=== PATIENT | male | born 1945 | race Caucasian/White ===

== ENCOUNTER 2016-08-25 17:32 | Emergency (ER) | payer MEDICARE, OTHER ==
[2016-08-25 18:40] LABS: HEMOGLOBIN 14.2 gm/dl (14.0-17.5); RED BLOOD COUNT 4.67 M/UL (4.20-5.50); WHITE BLOOD COUNT 9.6 K/UL (4.5-11.0)
== END 2016-08-26 00:45 | disposition left against medical advice (07) ==
LOC: ER1 17:32
PROVIDERS: Emergency Medicine
DX: R07.9 Chest pain, unspecified (principal); E11.65 Type 2 diabetes mellitus with hyperglycemia; F17.200 Nicotine dependence, unspecified, uncomplicated; Z89.612 Acquired absence of left leg above knee; Z79.4 Long term (current) use of insulin
CPT/HCPCS: 36415; 36600; 71010; 80053; 81001; 82009; 82803; 82962; 83690; 83880; 84484; 85025; 85379; 85610; 85730; 93005; 94664; 96372; 99285; J1815; J7030; J7050; Q9963

== ENCOUNTER 2020-10-10 18:54 | Emergency (ER) | payer MEDICARE, OTHER ==
[~2020-10-10 18:54] MED LIST: ASPIRIN CHEWABL81 MG PO; FLOMAX0.4 MG PO; GLUCOPHAGE500 MG PO; HYDROCHLOROTH12.5 M1 PO; LIPITOR TAB 2020 MG PO; LOPRESSOR 25 MG25 MG PO; NEURONTIN 400400 MG PO; NITROSTAT0.4 MG SL; NORCO 5-325 TA1 EACH PO; OMEPRAZOLE20 MG PO; OMNICEF 300 MG300 MG PO; PLAVIX 75 MG TA75 MG PO; REGLAN5 MG PO; SYNTHROID75 MCG PO; TRICOR48 MG PO
[2020-10-10 19:19] LABS: HEMOGLOBIN 11.4 gm/dl (14.0-17.5); RED BLOOD COUNT 3.89 M/UL (4.20-5.50); WHITE BLOOD COUNT 5.6 K/UL (4.5-11.0)
[2020-10-10 19:38] LABS: BUN/CREATININE RATIO 17 (0-10)
== END 2020-10-10 22:10 | disposition short-term general hospital (02) ==
LOC: ER1 18:54
PROVIDERS: Emergency Medicine
DX: I72.8 Aneurysm of other specified arteries (principal); K55.1 Chronic vascular disorders of intestine; E11.9 Type 2 diabetes mellitus without complications; I10 Essential (primary) hypertension; F17.210 Nicotine dependence, cigarettes, uncomplicated; Z88.8 Allergy status to other drugs, medicaments and biological substances
CPT/HCPCS: 80053; 82550; 82553; 83605; 83690; 83874; 84484; 85025; 85610; 85730; 87040; 93005; 96374; 96375; 99284; J2270; J2405; Q9965

== ENCOUNTER 2020-12-06 17:46 | Emergency (ER) | payer MEDICARE, OTHER ==
[2020-12-06 21:03] LABS: HEMOGLOBIN 8.6 gm/dl (14.0-17.5); RED BLOOD COUNT 3.15 M/UL (4.20-5.50); WHITE BLOOD COUNT 8.1 K/UL (4.5-11.0)
[2020-12-06 21:23] LABS: BUN/CREATININE RATIO 15 (0-10)
[2020-12-07] MEDS ORDERED: ZOFRAN ODT 4 MG4 MG GT (04:29)
== END 2020-12-07 05:12 | disposition home or self-care (01) ==
LOC: ER1 17:46
PROVIDERS: Physician Assistant
DX: R10.31 Right lower quadrant pain (principal); R10.32 Left lower quadrant pain; R11.2 Nausea with vomiting, unspecified; E11.9 Type 2 diabetes mellitus without complications; I10 Essential (primary) hypertension; Z90.49 Acquired absence of other specified parts of digestive tract; F17.200 Nicotine dependence, unspecified, uncomplicated; Z79.01 Long term (current) use of anticoagulants; Z88.8 Allergy status to other drugs, medicaments and biological substances
CPT/HCPCS: 80053; 81001; 83605; 83690; 85025; 87040; 96374; 96375; 99284; J2270; J2405; Q9967

== ENCOUNTER 2021-01-05 20:36 | Emergency (ER) | payer MEDICARE, OTHER ==
[~2021-01-05 20:36] MED LIST changes: +ZOFRAN ODT 4 MG4 MG GT
[2021-01-05 21:34] LABS: HEMOGLOBIN 9.3 gm/dl (14.0-17.5); RED BLOOD COUNT 3.33 M/UL (4.20-5.50); WHITE BLOOD COUNT 6.3 K/UL (4.5-11.0)
[2021-01-05 21:58] LABS: BUN/CREATININE RATIO 20 (0-10)
== END 2021-01-06 02:58 | disposition home or self-care (01) ==
LOC: ER1 20:36
PROVIDERS: Family Medicine
DX: I71.4 Abdominal aortic aneurysm, without rupture (principal); I73.9 Peripheral vascular disease, unspecified; R31.9 Hematuria, unspecified; D64.9 Anemia, unspecified; E11.65 Type 2 diabetes mellitus with hyperglycemia; G89.29 Other chronic pain; Z79.01 Long term (current) use of anticoagulants; F17.200 Nicotine dependence, unspecified, uncomplicated
CPT/HCPCS: 80053; 81001; 82550; 82553; 83605; 83690; 83874; 84484; 85025; 85610; 87077; 87086; 87186; 93005; 99284; J7030